=== PATIENT | male | born 2000 | race American Indian/Alaskan Native ===

== ENCOUNTER 2019-03-30 22:36 | Emergency (ER) | payer SELFPAY ==
[2019-03-30 22:43] VITALS: BP 124/54
--- NOTE | 2019-03-30 22:51 | Event Note ---
ED Screening Note ED Screening Note: pt presents with sore throat that began today hurts to swallow no sick contacts no fever tolerating secretions This initial assessment/diagnostic orders/clinical plan/treatment(s) is/are subject to change based on patients health status, clinical progression and re- assessment by fellow clinical providers in the ED. Further treatment and workup at subsequent clinical providers discretion. Patient/guardian urged not to elope from the ED as their condition may be serious if not clinically assessed and managed. on exam pt has tonsillitis, will give dexamethasone and d/c with appropriate tx
[2019-03-30] MEDS ORDERED: DECADRON IM ONE (22:53)
--- NOTE | 2019-03-30 22:53 | Emergency Department Report ---
ED ENT HPI - General Chief complaint: Sore Throat Stated complaint: THROAT SWOLLEN Time Seen by Provider: 03/30/19 22:48 Source: patient Mode of arrival: Ambulatory Limitations: No Limitations - History of Present Illness Initial comments: pt is a 18 yo male who presents to the ED with c/o sore throat that began today. pt states it hurts to swallow. he states his states his tonsils feel swollen. he denies any sick contacts. pt denies any fever. he is tolerating secretions and PO intake. he denies any allergies to meds. no PMHx. no recent abx. - Related Data Previous Rx's Medication Instructions Recorded Last Taken Type Amoxicillin [Amoxicillin TAB] 875 mg PO BID 10 Days #20 tablet 03/30/19 Unknown Rx Nystas/Diphen/Xyl Visc/Mylanta 30 ml MM TID PRN #480 ml 03/30/19 Unknown Rx [Magic Mouthwash] Allergies Allergy/AdvReac Type Severity Reaction Status Date / Time No Known Allergies Allergy Verified 03/30/19 22:38 ED Dental HPI - General Chief complaint: Sore Throat Stated complaint: THROAT SWOLLEN, JUAN JOSE Time Seen by Provider: 03/30/19 22:48 Source: patient Mode of arrival: Ambulatory Limitations: No Limitations - Related Data Previous Rx's Medication Instructions Recorded Last Taken Type Amoxicillin [Amoxicillin TAB] 875 mg PO BID 10 Days #20 tablet 03/30/19 Unknown Rx Nystas/Diphen/Xyl Visc/Mylanta 30 ml MM TID PRN #480 ml 03/30/19 Unknown Rx [Magic Mouthwash] Allergies Allergy/AdvReac Type Severity Reaction Status Date / Time No Known Allergies Allergy Verified 03/30/19 22:38 ED Review of Systems ROS: Stated complaint: THROAT SWOLLEN, JUAN JOSE Other details as noted in HPI Comment: All other systems reviewed and negative ED Past Medical Hx - Past Medical History Previous Medical History?: No - Surgical History Past Surgical History?: No - Social History Smoking Status: Current Every Day Smoker Substance Use Type: None - Medications Home Medications: Home Medications Medication Instructions Recorded Confirmed Last Taken Type Amoxicillin [Amoxicillin TAB] 875 mg PO BID 10 Days #20 tablet 03/30/19 Unknown Rx Nystas/Diphen/Xyl Visc/Mylanta 30 ml MM TID PRN #480 ml 03/30/19 Unknown Rx [Magic Mouthwash] ED Physical Exam - General Limitations: No Limitations General appearance: alert, in no apparent distress - Head Head exam: Present: atraumatic, normocephalic - Eye Eye exam: Present: normal appearance - ENT ENT exam: Present: mucous membranes moist, other (tonsillar hypertrophy bilaterally with small exudates, no uvular edema, uvula is midline, tolerating secretions) - Respiratory Respiratory exam: Present: normal lung sounds bilaterally. Absent: respiratory distress, wheezes, rales, rhonchi, stridor, chest wall tenderness, accessory muscle use, decreased breath sounds, prolonged expiratory - Cardiovascular Cardiovascular Exam: Present: regular rate, normal rhythm, normal heart sounds. Absent: systolic murmur, diastolic murmur, rubs, gallop - Neurological Exam Neurological exam: Present: alert, oriented X3 - Psychiatric Psychiatric exam: Present: normal affect, normal mood - Skin Skin exam: Present: warm, dry, intact ED Course Vital Signs 03/30/19 03/30/19 22:42 22:48 Temperature 98.3 F 98.3 F Pulse Rate 81 81 Respiratory 16 18 Rate Blood Pressure 124/54 124/54 O2 Sat by Pulse 98 99 Oximetry ED Medical Decision Making - Medical Decision Making pt is a 18 yo male who presents to the ED with c/o sore throat that began today. pt states it hurts to swallow. he states his states his tonsils feel swollen. he denies any sick contacts. pt denies any fever. he is tolerating secretions and PO intake. he denies any allergies to meds. no PMHx. no recent abx. vitals are normal. on exam: tonsillar hypertrophy bilaterally with small exudates, no uvular edema, uvula is midline, tolerating secretions. examination consistent with acute tonsillitis. pt given decadron injection while in the ED. given prescription for amoxicillin and magic mouthwash. advised to please take medication as prescribed to completion. may do warm salt water gargles. can take tylenol or ibuprofen for any discomfort or a temperature of 100.4 or greater. throw away your toothbrush. do not drink after others or allow others to drink after you. follow up with a primary care doctor in the next 2-3 days. return to the emergency room for any new or worsening symptoms. Critical care attestation.: If time is entered above; I have spent that time in minutes in the direct care of this critically ill patient, excluding procedure time. ED Disposition Clinical Impression: Tonsillitis Disposition: DC-01 TO HOME OR SELFCARE Is pt being admited?: No Does the pt Need Aspirin: No Condition: Stable Instructions: Tonsillitis (ED) Additional Instructions: please take medication as prescribed to completion. may do warm salt water gargles. can take tylenol or ibuprofen for any discomfort or a temperature of 100.4 or greater. throw away your toothbrush. do not drink after others or allow others to drink after you. follow up with a primary care doctor in the next 2-3 days. return to the emergency room for any new or worsening symptoms. Prescriptions: Amoxicillin [Amoxicillin TAB] 875 mg PO BID 10 Days #20 tablet Nystas/Diphen/Xyl Visc/Mylanta [Magic Mouthwash] 30 ml MM TID PRN #480 ml PRN Reason: sore throat Referrals: [facility] [Provider Group] - 2-3 Days [facility] [Outside] - 2-3 Days [facility] [Outside] - 2-3 Days Forms: Accompanied Note, Work/School Release Form(ED) Time of Disposition: 22:54 Print Language: MALAGASY
== END 2019-03-31 00:01 | disposition home or self-care (01) ==
LOC: ED 22:36
DX: J03.90 Acute tonsillitis, unspecified (principal); F17.200 Nicotine dependence, unspecified, uncomplicated; Z79.899 Other long term (current) drug therapy
CPT/HCPCS: 96372; 99282; J1100

== ENCOUNTER 2019-04-04 21:32 | Emergency (ER) | payer SELFPAY ==
[2019-04-04] MEDS ORDERED: DECADRON IM ONE (22:07)
--- NOTE | 2019-04-04 22:07 | Event Note ---
ED Screening Note ED Screening Note: here 2 days ago no better on amox- was given no steroids hoarse voice trouble swallowing vss abc intact This initial assessment/diagnostic orders/clinical plan/treatment(s) is/are subject to change based on patients health status, clinical progression and re- assessment by fellow clinical providers in the ED. Further treatment and workup at subsequent clinical providers discretion. Patient/guardian urged not to elope from the ED as their condition may be serious if not clinically assessed and managed. Initial orders include: rx ACC
[2019-04-04 22:11] VITALS: BP 125/62
[2019-04-05] MEDS ORDERED: BICILLIN L-A IM STA (02:19)
--- NOTE | 2019-04-05 02:31 | Emergency Department Report ---
ED ENT HPI - General Chief complaint: Sore Throat Stated complaint: THROAT PAIN Time Seen by Provider: 04/04/19 22:05 Source: patient Mode of arrival: Ambulatory Limitations: No Limitations - History of Present Illness MD complaint: sore throat -: Gradual, days(s) Location: throat Severity: moderate Quality: dull, constant Consistency: constant Improves with: none Worsens with: swallowing, eating Associated Symptoms: sore throat. denies: cough, gum swelling, tinnitus, hearing loss, discharge from ear, rhinorrhea - Related Data Previous Rx's Medication Instructions Recorded Last Taken Type Amoxicillin [Amoxicillin TAB] 875 mg PO BID 10 Days #20 tablet 03/30/19 Unknown Rx Nystas/Diphen/Xyl Visc/Mylanta 30 ml MM TID PRN #480 ml 03/30/19 Unknown Rx [Magic Mouthwash] Allergies Allergy/AdvReac Type Severity Reaction Status Date / Time No Known Allergies Allergy Verified 03/30/19 22:38 ED Dental HPI - General Chief complaint: Sore Throat Stated complaint: THROAT PAIN Time Seen by Provider: 04/04/19 22:05 Source: patient Mode of arrival: Ambulatory Limitations: No Limitations - Related Data Previous Rx's Medication Instructions Recorded Last Taken Type Amoxicillin [Amoxicillin TAB] 875 mg PO BID 10 Days #20 tablet 03/30/19 Unknown Rx Nystas/Diphen/Xyl Visc/Mylanta 30 ml MM TID PRN #480 ml 03/30/19 Unknown Rx [Magic Mouthwash] Allergies Allergy/AdvReac Type Severity Reaction Status Date / Time No Known Allergies Allergy Verified 03/30/19 22:38 ED Review of Systems ROS: Stated complaint: THROAT PAIN Other details as noted in HPI Comment: All other systems reviewed and negative ED Past Medical Hx - Past Medical History Previous Medical History?: No - Surgical History Past Surgical History?: No - Social History Smoking Status: Never Smoker Substance Use Type: None - Medications Home Medications: Home Medications Medication Instructions Recorded Confirmed Last Taken Type Amoxicillin [Amoxicillin TAB] 875 mg PO BID 10 Days #20 tablet 03/30/19 Unknown Rx Nystas/Diphen/Xyl Visc/Mylanta 30 ml MM TID PRN #480 ml 03/30/19 Unknown Rx [Magic Mouthwash] ED Physical Exam - General Limitations: No Limitations General appearance: alert, in no apparent distress - Head Head exam: Present: atraumatic, normocephalic - Eye Eye exam: Present: normal appearance, PERRL, EOMI Pupils: Present: normal accommodation - ENT ENT exam: Present: normal exam, normal orophraynx, mucous membranes moist, other (bilateral tonsillar swelling with erythema, no exudate. Tonsillar lymphadenopathy noted) - Neck Neck exam: Present: normal inspection, full ROM - Respiratory Respiratory exam: Present: normal lung sounds bilaterally. Absent: respiratory distress, wheezes, rales, chest wall tenderness, accessory muscle use - Cardiovascular Cardiovascular Exam: Present: regular rate, normal rhythm. Absent: systolic murmur, diastolic murmur, rubs, gallop - GI/Abdominal GI/Abdominal exam: Present: soft, normal bowel sounds - Rectal Rectal exam: Present: deferred - Extremities Exam Extremities exam: Present: normal inspection - Back Exam Back exam: Present: normal inspection - Neurological Exam Neurological exam: Present: alert, oriented X3 - Psychiatric Psychiatric exam: Present: normal affect, normal mood - Skin Skin exam: Present: warm, dry, intact, normal color. Absent: rash ED Course Vital Signs 04/04/19 22:09 Temperature 98.8 F Pulse Rate 70 Respiratory 18 Rate Blood Pressure 125/62 O2 Sat by Pulse 100 Oximetry Critical care attestation.: If time is entered above; I have spent that time in minutes in the direct care of this critically ill patient, excluding procedure time. ED Disposition Clinical Impression: Tonsillitis Disposition: DC-01 TO HOME OR SELFCARE Is pt being admited?: No Does the pt Need Aspirin: No Condition: Stable Instructions: Pharyngitis (ED) Referrals: PRIMARY CARE, [Primary Care Provider] - 3-5 Days
== END 2019-04-05 04:02 | disposition home or self-care (01) ==
LOC: ED 21:32
DX: J03.90 Acute tonsillitis, unspecified (principal)
CPT/HCPCS: 96372; 99282; J0561; J1100

== ENCOUNTER 2019-07-01 09:55 | Emergency (ER) | payer SELFPAY ==
[2019-07-01 10:11] VITALS: BP 136/70
--- NOTE | 2019-07-01 11:09 | XRay Report ---
CHEST 1 VIEW 07/01/2019 10:47 AM INDICATION / CLINICAL INFORMATION: Chest Pain. COMPARISON: None available. FINDINGS: SUPPORT DEVICES: None. HEART / MEDIASTINUM: No significant abnormality. LUNGS / PLEURA: No significant pulmonary or pleural abnormality. No pneumothorax. ADDITIONAL FINDINGS: No significant additional findings. IMPRESSION: 1. No acute findings. Signer Name: Steve Mendez MD Signed: 07/01/2019 11:05 AM Workstation Name: [id number]
--- NOTE | 2019-07-01 11:54 | Emergency Department Report ---
- General Chief Complaint: Sore Throat Stated Complaint: SORE THROAT Source: patient Mode of arrival: Ambulatory Limitations: No Limitations - History of Present Illness MD Complaint: sore throat -: Sudden - Related Data Previous Rx's Medication Instructions Recorded Last Taken Type Amoxicillin [Amoxicillin TAB] 875 mg PO BID 10 Days #20 tablet 03/30/19 Unknown Rx Nystas/Diphen/Xyl Visc/Mylanta 30 ml MM TID PRN #480 ml 03/30/19 Unknown Rx [Magic Mouthwash] Clindamycin [Clindamycin CAP] 300 mg PO Q8H 10 Days #30 capsule 07/01/19 Unknown Rx methylPREDNISolone [Medrol 4MG 4 mg PO DAILY #1 pack 07/01/19 Unknown Rx DOSEPAK (21 tabs)] Allergies Allergy/AdvReac Type Severity Reaction Status Date / Time No Known Allergies Allergy Verified 07/01/19 09:56 ED Review of Systems ROS: Stated complaint: SORE THROAT Other details as noted in HPI Comment: All other systems reviewed and negative ENT: throat pain Respiratory: cough Cardiovascular: chest pain ED Past Medical Hx - Past Medical History Additional medical history: PLEURISY - Social History Smoking Status: Never Smoker Substance Use Type: None - Medications Home Medications: Home Medications Medication Instructions Recorded Confirmed Last Taken Type Amoxicillin [Amoxicillin TAB] 875 mg PO BID 10 Days #20 tablet 03/30/19 Unknown Rx Nystas/Diphen/Xyl Visc/Mylanta 30 ml MM TID PRN #480 ml 03/30/19 Unknown Rx [Magic Mouthwash] Clindamycin [Clindamycin CAP] 300 mg PO Q8H 10 Days #30 capsule 07/01/19 Unknown Rx methylPREDNISolone [Medrol 4MG 4 mg PO DAILY #1 pack 07/01/19 Unknown Rx DOSEPAK (21 tabs)] ED Physical Exam - General Limitations: No Limitations General appearance: alert - Eye Eye exam: Present: normal appearance - ENT ENT exam: Present: mucous membranes moist, TM's normal bilaterally, normal external ear exam, other (bilateral enlarged tonsils with exudate. Uvula mid line. Neg trismus) - Neck Neck exam: Present: normal inspection - Respiratory Respiratory exam: Present: normal lung sounds bilaterally. Absent: respiratory distress - Cardiovascular Cardiovascular Exam: Present: regular rate - GI/Abdominal GI/Abdominal exam: Present: soft. Absent: distended, tenderness - Rectal Rectal exam: Absent: deferred - Extremities Exam Extremities exam: Present: normal inspection - Neurological Exam Neurological exam: Present: alert, oriented X3 - Psychiatric Psychiatric exam: Present: normal affect ED Course Vital Signs 07/01/19 10:08 Temperature 98.6 F Pulse Rate 103 H Respiratory 18 Rate Blood Pressure 136/70 O2 Sat by Pulse 99 Oximetry ED Medical Decision Making - Lab Data Result diagrams: 07/01/19 12:13 07/01/19 12:13 - EKG Data Interpretation: normal EKG - Radiology Data Radiology results: report reviewed CHEST 1 VIEW 07/01/2019 10:47 AM INDICATION / CLINICAL INFORMATION: Chest Pain. COMPARISON: None available. FINDINGS: SUPPORT DEVICES: None. HEART / MEDIASTINUM: No significant abnormality. LUNGS / PLEURA: No significant pulmonary or pleural abnormality. No pneumothorax. ADDITIONAL FINDINGS: No significant additional findings. IMPRESSION: 1. No acute findings. - Medical Decision Making This is a 19-year-old male complaining of sore throat 2 days. He denies fever nausea vomiting and diarrhea. He reports a history of pleurisy a few months ago and states when he coughs he has chest pain. Rapid strep Bryan and chest x-ray and EKG with no acute findings. Examination his throat is with enlarged tonsils with positive exudate. He is treated with Bicillin 1.2 million units. Prescription for clindamycin and a Medrol Dosepak because of the severity of the examination of his throat. He is instructed to follow-up with his primary care doctor or return for any worsening symptoms. Critical care attestation.: If time is entered above; I have spent that time in minutes in the direct care of this critically ill patient, excluding procedure time. ED Disposition Clinical Impression: Acute pharyngitis Qualifiers: Pharyngitis/tonsillitis etiology: other specified organisms Qualified Code(s): J02.8 - Acute pharyngitis due to other specified organisms Disposition: DC-01 TO HOME OR SELFCARE Is pt being admited?: No Does the pt Need Aspirin: No Condition: Stable Instructions: Pharyngitis (ED) Additional Instructions: Increase oral fluids. Warm salt water gargles as prescribed. Take all medications as instructed. Follow up with PCP in 2-3 days or at [facility] [phone]. Return for any worsening symptoms. Prescriptions: Clindamycin [Clindamycin CAP] 300 mg PO Q8H 10 Days #30 capsule methylPREDNISolone [Medrol 4MG DOSEPAK (21 tabs)] 4 mg PO DAILY #1 pack Referrals: GEOVANNY HURD MD [Primary Care Provider] - 3-5 Days Forms: Work/School Release Form(ED) Time of Disposition: 15:00
[2019-07-01 12:36] LABS: Hematocrit 45.5 % (35.5-45.6); Hemoglobin 15.3 gm/dl (11.8-15.2); Mean Corpuscular HGB Conc 34 % (32-34); Mean Corpuscular Volume 92 fl (84-94); Platelet Count 208 K/mm3 (140-440); Red Blood Count 4.96 M/mm3 (3.65-5.03); Red Cell Distribution Width 13.3 % (13.2-15.2)
[2019-07-01 13:02] LABS: BUN/Creatinine Ratio 11; Blood Urea Nitrogen 10 mg/dL (9-20); Calcium 9.7 mg/dL (8.4-10.2); Hemolysis Index 2
[2019-07-01] MEDS ORDERED: PENICILLIN G BENZATHINE 1.2 MILLION UNIT/2 ML INJ IM ONE (13:18)
[2019-07-01 14:34] LABS: Anisocytosis Few; Band Neutrophils # (Manual) 0.2 K/mm3; Basophils % (Manual) 0 % (0.0-1.8); Eosinophils % (Manual) 0 % (0.0-4.3); Platelet Estimate Consistent w Auto; Total Cells Counted 100
== END 2019-07-01 13:52 | disposition home or self-care (01) ==
LOC: ED 09:55
DX: J02.8 Acute pharyngitis due to other specified organisms (principal); Z79.899 Other long term (current) drug therapy
CPT/HCPCS: 36415; 71045; 80048; 85007; 85025; 86308; 87116; 87430; 93005; 93010; 96372; 99284; J0561